=== PATIENT | male | born 1965 | race Caucasian/White ===

== ENCOUNTER 2020-12-27 18:11 | Emergency (ER) | payer OTHER, SELFPAY ==
[2020-12-27 18:15] VITALS: BP 159/90; PULSE 71; RESP 18; TEMP 37.1; O2SAT 97; BMI 32.6
--- NOTE | 2020-12-27 18:20 | ED_ITS ---
HPI - General Adult General: Chief complaint: General Medical Stated complaint: covid exposure Time Seen by Provider: 12/27/20 18:18 History of Present Illness: HPI narrative: Patient reports positive Covid exposure from his daughter who tested positive here in the ER today. Patient said he had some nausea and not feeling good last week diarrhea but he is feeling fine now. Has a history of hypertension cardiovascular disease. Would like to know if he is Covid positive. MD complaint: Covid exposure Onset (ago): day(s) Associated symptoms: Reports no associated symptoms; Deny chest pain, dyspnea, headache(s), nausea, rash or vomiting Review of Systems Const: Denies: fever(s), chills or body aches Eyes: Denies: change in vision or blurry vision ENMT: Denies: throat pain or nasal congestion Card: Denies: chest pain or dyspnea on exertion Resp: Denies: dyspnea, productive cough or non-productive cough GI: Denies: abdominal pain, nausea or vomiting : Denies: difficulty urinating Musc: Denies: extremity pain Skin/Breast: Denies: rash Neuro: Denies: headache(s) Psych: Denies: anxiety or depression Dieter/Lymph: Denies: easy bruising PFSH ED PFSH: Medical History CAD (coronary artery disease) Hyperlipidemia Hypertension Surgical History Hx of CABG Family History Other CAD (coronary artery disease) Diabetes Hypertension Social History Smoking and tobacco status: never smoked Alcohol intake: current Alcohol intake frequency: few times a month Physical Exam Const: COMMON NORMALS: no acute distress Resp: COMMON NORMALS: normal respiratory effort Psych: COMMON NORMALS: mental status grossly normal Course Vital Signs: Vital signs: Vital Signs Temperature 98.7 F 12/27/20 18:15 Pulse Rate 71 12/27/20 18:15 Respiratory Rate 18 12/27/20 18:15 Blood Pressure 159/90 12/27/20 18:15 Pulse Oximetry 97 12/27/20 18:15 Discharge Plan Discharge Prescriptions: No Action aspirin [Adult Low Dose Aspirin] 81 mg tablet,delayed release (DR/EC) 81 mg PO DAILY RF: 0 carvedilol 3.125 mg tablet 3.125 mg PO BID RF: 0 simvastatin 20 mg tablet 20 mg PO DAILY RF: 0 hydrocodone-acetaminophen 5-325 mg tablet 1 tab PO BID PRNRF: 0 nitroglycerin [Nitrostat] 0.4 mg tablet, sublingual 0.4 mg SUBLINGUAL Q5M PRN (Reason: chest pain) Qty: 50 RF: 2 Coding Level of Care Code ED Credit Charge Authorizer for Uzma Lee
[2020-12-27 18:49] LABS: SARS Covid-2 Antigen Negative (Negative)
== END 2020-12-27 19:05 | disposition home or self-care (01) ==
PROVIDERS: Emergency Provider Nurse Practitioner Family
DX: Z20.822 Contact with and (suspected) exposure to COVID-19 (principal); I25.10 Atherosclerotic heart disease of native coronary artery without angina pectoris; E78.5 Hyperlipidemia, unspecified; I10 Essential (primary) hypertension; Z95.1 Presence of aortocoronary bypass graft; Z79.82 Long term (current) use of aspirin
CPT/HCPCS: 87426; 99282

== ENCOUNTER 2022-01-03 08:11 | Outpatient (CLI) | payer OTHER, SELFPAY ==
[2022-01-03 09:13] VITALS: BMI 33.4
--- NOTE | 2022-01-03 09:15 | NMCV_ITS ---
NM shanthi perf SPECT r/s* [id number] Tamia Callejas Age: 56 Gender: M : 1965 Exam Date: 01/03/2022 09:37 Ordering Phys: Berto Ayala MD Technologist: VIOLA Sousa Exam Location: [facility] Indications: DYSPNEA ON EXERTION STRESS TEST Please see separate stress test report in [facility] for full findings IMAGE PROTOCOL Rest/Stress 1 Lexiscan Day Radiopharmaceutical Dose (mCi) Administration Site Administered by Rest: Tc-99m 10.8 IV VIOLA Barrios Sestamibi Stress:Tc-99m 33.0 IV VIOLA Barrios Sestamibi Rest: 03-Jan-2022 60 Discovery 630 Stress: 03-Jan-2022 30 Discovery 630 0.4mg Lexiscan. Images obtained in supine and prone position. SPECT RESULTS Technical Quality: Excellent Raw Data Analysis: Normal Image Corrections: No attenuation or motion correction applied Summed Stress Score: 16 Summed Rest Score: 11 Summed Difference Score: 6 PERFUSION FINDINGS Medium to large partially reversible perfusion abnormality of moderate severity in basal to apical inferior, basal to mid inferolateral, mid anterolateral, mid inferoseptal, apical lateral and apical lora. FUNCTIONAL RESULTS (calculated via Gated SPECT) Stress Image LV EF (%): 43 Stress EDV (mL):138 TID: 1.07 Stress ESV (mL):78 FUNCTIONAL FINDINGS: The left ventricle is normal in size. Transient Ischemia Dilatation of 1.1. The left ventricular ejection fraction is mildly reduced with a value of 43%. There is global hypokinesis. IMPRESSIONS 1. Medium to large partially reversible perfusion abnormality of basal to apical inferior, basal to mid inferolateral, mid anterolateral, mid inferoseptal, apical lateral and apical lora. 2. This may be suggestive of myocardial infarction with mild [place]-infarct ischemia in right coronary artery and circumflex artery territory. (SDS=6) 3. The left ventricular ejection fraction is mildly reduced with a value of 43%. 4. There is global hypokinesis. 5. EKG portion of the study will be reported separately. Odalis Mcfarland MD (Electronically Signed) Final Date: 06 Jan 2022 13:25 S
--- NOTE | 2022-01-03 09:15 | ECG_ITS ---
[facility] Test Date: 2022-01-03 Pat Name: Tamia Callejas Department: Room: Gender: Male [employer] Registrar: Roro Mccarty : 1965 Requested By: Berto Sigala Order Number: [id number] Mandeep MD: Odalis Mcfarland M.D. Interpretive Statements NAME OF STUDY: LEXISCAN SESTAMIBI STRESS TEST INDICATION: Exertional dyspnea PROCEDURE: At the baseline, the blood pressure was 125/95 mmHg with a heart rate of 58 bpm. The electrocardiogram showed normal sinus rhythm, normal axis with nonspecific ST depression and T wave inversion in inferolateral leads. The Lexiscan was infused over a period of 20 seconds. A total of 0.4 milligrams of Lexiscan was infused. The stress phase was continued for a total of 5 minutes. Heart rate at the end of the stress phase was 110/79 mmHg with a blood pressure of 71 bpm. The EKG at the peak infusion revealed sinus rhythm with no significant ST-T wave changes. The study was terminated protocol completion. Sestamibi was injected 20 seconds after the Lexiscan infusion. Blood pressure at the end of the recovery phase was 134/85 mmHg with a heart rate of 68 beats per minute. CONCLUSION: 1. Equivocal EKG response with the LexiScan infusion due to baseline ST-T wave changes. 2. No LexiScan induced chest pain or cardiac arrhythmia. 3. Normal blood pressure and heart rate response. 4. Sestamibi/sestamibi perfusion scan pending; see separate report. Electronically Signed On 01-03-2022 18:18:14 CDT by Odalis Mcfarland M.D. [id number]
[2022-01-03] MEDS: regadenoson 0.4 Mg/5 ml Syringe IVP (10:26)
[2022-01-03 10:30] VITALS: BP 134/85; PULSE 66
== END 2022-01-03 08:12 | disposition home or self-care (01) ==
LOC: RAD 08:32 → CDL 09:10
PROVIDERS: PCP Family Medicine; Visit Provider Family Medicine
DX: R06.09 Other forms of dyspnea (principal); R94.39 Abnormal result of other cardiovascular function study
CPT/HCPCS: 78452; 93017; A9500; J2785

== ENCOUNTER → 2022-11-18 07:39 | Outpatient (BNVA) | payer OTHER, SELFPAY | PROVIDERS: PCP Family Medicine; Visit Provider Family Medicine | DX: E78.49 Other hyperlipidemia (principal); I10 Essential (primary) hypertension; I25.810 Atherosclerosis of coronary artery bypass graft(s) without angina pectoris; I25.10 Atherosclerotic heart disease of native coronary artery without angina pectoris; E78.5 Hyperlipidemia, unspecified | CPT/HCPCS: 80053; 80061; 85025 ==

== ENCOUNTER → 2022-11-25 12:19 | Outpatient (BNVA) | payer OTHER, SELFPAY | PROVIDERS: PCP Family Medicine; Visit Provider Family Medicine | DX: R73.9 Hyperglycemia, unspecified (principal); E78.5 Hyperlipidemia, unspecified | CPT/HCPCS: 83036 ==

== ENCOUNTER → 2023-07-20 14:23 | Outpatient (BNVA) | payer OTHER, SELFPAY | PROVIDERS: PCP Family Medicine; Visit Provider Family Medicine | DX: I10 Essential (primary) hypertension (principal); E78.5 Hyperlipidemia, unspecified; I25.10 Atherosclerotic heart disease of native coronary artery without angina pectoris; G47.00 Insomnia, unspecified; E10.9 Type 1 diabetes mellitus without complications; E03.8 Other specified hypothyroidism | CPT/HCPCS: 80053; 80061; 83036; 85025 ==

== ENCOUNTER 2024-01-18 07:44 | Outpatient (CLI) | payer OTHER, SELFPAY ==
--- NOTE | 2024-01-18 07:47 | XR_ITS ---
WS: [id number] Exam: XR ribs RT mn 3V w CXR1V [id number] Date/Time of Exam: 01/18/2024 7:48 AM Reason For Exam: right rib, posterior lower rib pain Compared to chest radiograph 05/14/2018. No acute RIGHT rib fracture. The RIGHT lung is fully expanded and clear. Normal cardiomediastinal sayra houette. LEFT lung is also clear. Signs of median sternotomy. No pleural effusions. XR/XR ribs RT mn 3V w CXR1V [id number] IMPRESSION: 1. Negative RIGHT rib study. 2. No acute cardiopulmonary finding.
== END 2024-01-18 07:45 | disposition home or self-care (01) ==
LOC: RAD 07:46
PROVIDERS: PCP Family Medicine; Visit Provider Family Medicine
DX: R07.81 Pleurodynia (principal)
CPT/HCPCS: 71101; 80048; 83036

== ENCOUNTER 2025-07-20 10:40 | Emergency (ER) | payer OTHER, SELFPAY ==
--- NOTE | 2025-07-20 10:41 | XRR_ITS ---
PROCEDURE INFORMATION: Exam: XR Chest Exam date and time: 07/20/2025 10:51 AM Age: 59 years old Clinical indication: Pain; Chest pressure; Prior surgery; Surgery date: 6+ months; Surgery type: Quad bypass stents; Additional info: Cp TECHNIQUE: Imaging protocol: Radiologic exam of the chest. Views: 1 view. COMPARISON: CR XR ribs RT mn 3V w CXR1V [id number] 01/18/2024 7:50 AM FINDINGS: Lungs: Unremarkable. No consolidation. Pleural spaces: Unremarkable. No pleural effusion. No pneumothorax. Heart/Mediastinum: Heart size is normal. There is calcified plaque involving the aorta. Sternal wires are present from prior cardiac surgery. Bones/joints: Unremarkable. XR/XR chest 1V portable [id number] IMPRESSION: 1. No acute findings.
--- NOTE | 2025-07-20 10:41 | ECG_ITS ---
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 Measurements Intervals [place] Rate: 70 P: -12 FL: 183 QRS: 32 QRSD: 94 T: 53 QT: 403 QTc: 437 Interpretive Statements SINUS RHYTHM NONSPECIFIC T-WAVE ABNORMALITY Compared to ECG 05/14/2018 17:27:28 No significant changes Electronically Signed On 07-20-2025 11:32:57 BRAND REPRESENTATIVE by Brannon Li M.D. [id number]
--- OUTSIDE RECORDS SUMMARY | 2025-07-20 10:43 | XMS_ITS | Encounter Summary ---
Author Organization [facility] Address [address] [place] [address] Care Team Providers Care Flash Oven Operator Name Role Phone Unavailable Primary Care Provider Unavailabl e Encounter Details Date Type Department Care Team (Latest Contact Info) Description 09/20/[address] [facility] Orthopedics- 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
--- OUTSIDE RECORDS SUMMARY | 2025-07-20 10:43 | XMS_ITS | Encounter Summary ---
Author Organization [facility] Address [address] [place] [address] Care Team Providers Care After School Coordinator Name Role Phone Unavailable Primary Care Provider Unavailabl e Encounter Details Date Type Department Care Team (Latest Contact Info) Description 07/29/2004 Outpatient Historical [facility] Orthopedics- 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
--- OUTSIDE RECORDS SUMMARY | 2025-07-20 10:43 | XMS_ITS | Encounter Summary ---
Author Organization [facility] Address [address] [place] [address] Care Team Providers Care Way Inspector Name Role Phone Unavailable Primary Care Provider Unavailabl e Encounter Details Date Type Department Care Team (Latest Contact Info) Description 07/29/2004 Outpatient Historical [facility] Hand Therapy [address] [place] [phone] Ulisses Minor MD [address] [place] [phone] DISLOCAT ELBOW NOS-CLOSE (Primary Dx) Social History Tobacco Use Types Packs/Day Years Used Date Smoking Tobacco: Never Assessed Sex and Gender Information Value Date Recorded Sex Assigned at Not on file 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
--- OUTSIDE RECORDS SUMMARY | 2025-07-20 10:43 | XMS_ITS | Encounter Summary ---
Author Organization [facility] Address [address] [place] [address] Care Team Providers Care Medical Billing Instructor Name Role Phone Unavailable Primary Care Provider Unavailabl e Encounter Details Date Type Department Care Team (Latest Contact Info) Description 11/01/2004 Outpatient Historical [facility] Orthopedics- 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
--- OUTSIDE RECORDS SUMMARY | 2025-07-20 10:43 | XMS_ITS | Clinical Summary ---
Author Organization [facility] Address [address] 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
--- OUTSIDE RECORDS SUMMARY | 2025-07-20 10:43 | XMS_ITS | Encounter Summary ---
Author Organization [facility] Address [address] [place] [address] Care Team Providers Care Tax Director Name Role Phone Unavailable Primary Care Provider Unavailabl e Encounter Details Date Type Department Care Team (Latest Contact Info) Description 12/08/2004 Outpatient Historical [facility] Orthopedics- 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
--- OUTSIDE RECORDS SUMMARY | 2025-07-20 10:43 | XMS_ITS | Encounter Summary ---
Author Organization [facility] Address [address] [place] [address] Care Team Providers Care Gas Turbine Mechanic Name Role Phone Unavailable Primary Care Provider Unavailabl e Encounter Details Date Type Department Care Team (Latest Contact Info) Description 02/14/2005 Outpatient Historical [facility] Orthopedics- 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
--- OUTSIDE RECORDS SUMMARY | 2025-07-20 10:43 | XMS_ITS | Encounter Summary ---
Author Organization [facility] Address [address] [place] [address] Care Team Providers Care Preconstruction Manager Name Role Phone Unavailable Primary Care Provider Unavailabl e Encounter Details Date Type Department Care Team (Latest Contact Info) Description 02/02/2005 Outpatient Historical [facility] [address] [place] [address] Ulisses Minor MD [address] [place] [phone] JOINT CONTRACTURE-UP/ARM (Primary Dx) Social History Tobacco Use Types Packs/Day Years Used Date Smoking Tobacco: Never Assessed Sex and Gender Information Value Date Recorded Sex Assigned at Not on file 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
--- OUTSIDE RECORDS SUMMARY | 2025-07-20 10:43 | XMS_ITS | Encounter Summary ---
Author Organization [facility] Address [address] [place] [address] Care Team Providers Care Director Of Primary Name Role Phone Unavailable Primary Care Provider Unavailabl e Encounter Details Date Type Department Care Team (Latest Contact Info) Description 03/28/2005 Outpatient Historical [facility] Orthopedics- 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
--- OUTSIDE RECORDS SUMMARY | 2025-07-20 10:43 | XMS_ITS | Encounter Summary ---
Author Organization [facility] Address [address] [place] [address] Care Team Providers Care Spoilage Worker Name Role Phone Unavailable Primary Care Provider Unavailabl e Encounter Details Date Type Department Care Team (Latest Contact Info) Description 09/29/2004 Outpatient Historical [facility] Hand Therapy [address] [place] [phone] Ulisses Minor MD [address] [place] [phone] DISLOCAT ELBOW NOS-CLOSE (Primary Dx) Social History Tobacco Use Types Packs/Day Years Used Date Smoking Tobacco: Never Assessed Sex and Gender Information Value Date Recorded Sex Assigned at Not on file 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
--- OUTSIDE RECORDS SUMMARY | 2025-07-20 10:43 | XMS_ITS | Encounter Summary ---
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
--- OUTSIDE RECORDS SUMMARY | 2025-07-20 10:43 | XMS_ITS | Encounter Summary ---
Author Organization [facility] Address [address] [place] [address] Care Team Providers Care Microarray Operations Vice President Name Role Phone Unavailable Primary Care Provider Unavailabl e Encounter Details Date Type Department Care Team (Latest Contact Info) Description 08/29/2004 Outpatient Historical [facility] Hand Therapy [address] [place] [phone] Ulisses Minor MD [address] [place] [phone] DISLOCAT ELBOW NOS-CLOSE (Primary Dx) Social History Tobacco Use Types Packs/Day Years Used Date Smoking Tobacco: Never Assessed Sex and Gender Information Value Date Recorded Sex Assigned at Not on file 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
--- OUTSIDE RECORDS SUMMARY | 2025-07-20 10:43 | XMS_ITS | Encounter Summary ---
Author Organization [facility] Address [address] [place] [address] Care Team Providers Care Composite Boat Builder Name Role Phone Unavailable Primary Care Provider Unavailabl e Encounter Details Date Type Department Care Team (Latest Contact Info) Description 08/16/2004 Outpatient Historical [facility] Orthopedics- 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
[2025-07-20 10:45] VITALS: BP 148/88; PULSE 71; RESP 19; TEMP 36.5; O2SAT 96; BMI 21.2
--- NOTE | 2025-07-20 10:48 | W.ED.CHESTPA ---
HPI - Chest Pain General: Chief Complaint: Chest Pain Stated Complaint: cp, L arm tingling Time Seen by Provider: 07/20/25 10:46 Source: patient Mode of arrival: ambulatory Limitations: no limitations History of Present Illness: 59-year-old male states he has been having chest pain has been off and on for 2 weeks. States been a sharp pain in his left chest he denies any radiation denies any shortness of breath nausea. Does have extensive heart history. Patient states he is currently pain-free he was having pain earlier this morning Related Data Home Medications ?Medication ?Instructions ?Recorded ?Confirmed aspirin 81 mg tablet,delayed 81 mg PO DAILY 01/10/20 01/18/24 release (Adult Low Dose Aspirin) amlodipine 2.5 mg tablet 2.5 mg PO DAILY 11/15/22 01/18/24 clopidogrel 75 mg tablet 75 mg PO DAILY 11/15/22 01/18/24 rosuvastatin 20 mg tablet 20 mg PO DAILY 11/15/22 01/18/24 Previous Rx's ?Medication ?Instructions ?Recorded carvedilol 3.125 mg tablet 3.125 mg PO BID #60 tabs 06/02/22 nitroglycerin 0.4 mg sublingual 0.4 mg sublingual Q5M PRN chest 11/15/22 tablet (Nitrostat) pain #20 tabs tadalafil 10 mg tablet (Cialis) 10 mg PO DAILY PRN sexual activity 11/15/22 #20 tabs prednisone 20 mg tablet 20 mg PO DAILY #5 tabs 01/18/24 Allergies Allergy/AdvReac Type Severity Reaction Status Date / Time No Known Allergies Allergy Verified 07/20/25 11:01 Review of Systems Card: Reports: chest pain PFS ED PFSH: Medical History Diabetes mellitus type 2, controlled Insomnia CAD (coronary artery disease) Hyperlipidemia Hypertension Surgical History Hx of CABG Family History Other CAD (coronary artery disease) Diabetes Hypertension Social History Smoking and tobacco/nicotine status: never used tobacco/nicotine Alcohol intake: current Alcohol intake frequency: few times a month Substance/Drug Use: never Physical Exam Const: COMMON NORMALS: patient oriented x3 HENMT: COMMON NORMALS: normocephalic and atraumatic HEAD & SCALP: normocephalic and atraumatic Neck/C-Spine: COMMON NORMALS: full ROM and supple Chest: COMMONS NORMALS: normal inspection of the chest and normal palpation of entire chest wall Resp: COMMON NORMALS: normal respiratory effort, No retractions, No use of accessory muscles and clear to auscultation bilaterally AUSCULTATION: clear to auscultation bilaterally Cardio: COMMON NORMALS: regular rate, regular rhythm and No murmurs present (Cardio) RATE: regular rate RHYTHM: regular rhythm Extremity: COMMON NORMALS: normal to inspection and full ROM Neuro: COMMON NORMALS: patient oriented x3, moves all extremities and no focal motor deficits Psych: COMMON NORMALS: mental status grossly normal, Normal thought process present and cooperative THOUGHT PROCESS: Normal thought process present Skin: COMMON NORMALS: no rashes or lesions noted and no wounds GENERAL SKIN EXAM: no rashes or lesions noted Course Vital Signs: Vital signs: Vital Signs Temperature 97.7 F 07/20/25 10:45 Pulse Rate 70 07/20/25 11:18 Respiratory Rate 19 H 07/20/25 10:45 Blood Pressure 122/72 07/20/25 11:18 Pulse Oximetry 98 07/20/25 11:18 Oxygen Delivery Me thod Room Air 07/20/25 11:18 MDM - Chest Pain Medical Decision Making EKG interpretation time 1050 normal sinus rhythm no ST elevation QRS 94 QTc 424 Medical Records I reviewed the patient's medical records. Lab Data 07/20/25 10:57 07/20/25 10:57 Radiology Impressions Chest X-Ray 07/20/25 10:41 IMPRESSION: 1. No acute findings. Laboratory Results WBC 7.25 10^3/uL (3.29-11.43) 07/20/25 10:57 RBC 4.55 10^6/uL (3.85-5.65) 07/20/25 10:57 Hgb 15.00 g/dL (11.27-16.99) 07/20/25 10:57 Hct 43.7 % (37-53) 07/20/25 10:57 MCV 96.0 fl (82-101) 07/20/25 10:57 MCH 33.0 pg (27-33) 07/20/25 10:57 MCHC 34.3 g/dL (30-55) 07/20/25 10:57 RDW 12.4 % (12.1-15.1) 07/20/25 10:57 Plt Count 179 10^3/cmm (157-399) 07/20/25 10:57 MPV 11.4 fL (7.4-10.4) H 07/20/25 10:57 Neut % (Auto) 66.3 % 07/20/25 10:57 Lymph % (Auto) 21.4 % 07/20/25 10:57 [place] % (Auto) 9.0 % 07/20/25 10:57 Eos % (Auto) 2.2 % 07/20/25 10:57 Baso % (Auto) 0.4 % 07/20/25 10:57 Neut # (Auto) 4.81 10^3/uL (1.8-7.7) 07/20/25 10:57 Lymph # (Auto) 1.6 10^3/uL (0.8-4.8) 07/20/25 10:57 [place] # (Auto) 0.7 10^3/uL (0.2-0.9) 07/20/25 10:57 Eos # (Auto) 0.2 10^3/uL (0.0-0.8) 07/20/25 10:57 Baso # (Auto) 0.0 10^3/uL (0.0-0.1) 07/20/25 10:57 Nucleated RBC % (auto) 0 % 07/20/25 10:57 Nucleated RBCs # 0.0 /100WBC 07/20/25 10:57 Sodium 138 mmol/L (136-145) 07/20/25 10:57 Potassium 4.4 mmol/L (3.5-5.1) 07/20/25 10:57 Chloride 103 mmol/L (98-107) 07/20/25 10:57 Carbon Dioxide 22 mmol/L (22-29) 07/20/25 10:57 Anion Gap 17.4 (5-19) 07/20/25 10:57 BUN 9 mg/dL (8-23) 07/20/25 10:57 Creatinine 0.6 mg/dL (0.7-1.2) L 07/20/25 10:57 GFR Calculation 137.4 mL/min (90-130) H 07/20/25 10:57 Glucose 387 mg/dL (65-115) H 07/20/25 10:57 Calculated Osmolality 301 mOsm/kg (285-295) H 07/20/25 10:57 Calcium 9.3 mg/dL (8.5-10.5) 07/20/25 10:57 Total Bilirubin 0.4 mg/dL (0.15-1.2) 07/20/25 10:57 AST 40 U/L (0-40) 07/20/25 10:57 ALT 46 U/L (0-41) H 07/20/25 10:57 Alkaline Phosphatase 85 U/L (40-130) 07/20/25 10:57 Troponin T Baseline 10 ng/L (0-15) 07/20/25 10:57 Total Protein 6.8 g/dL (6.6-8.7) 07/20/25 10:57 Albumin 4.6 g/dL (3.5-5.2) 07/20/25 10:57 Globulin 2.2 g/dL (1.3-4.6) 07/20/25 10:57 Lipase 94 U/L (13-60) H 07/20/25 10:57 All radiology interpretation(s) finalized by discharge Discharge Plan Discharge Condition: Stable Prescriptions: No Action aspirin [Adult Low Dose Aspirin] 81 mg tablet,delayed release (DR/EC) 81 mg PO DAILY rosuvastatin 20 mg tablet 20 mg PO DAILY clopidogrel 75 mg tablet 75 mg PO DAILY amlodipine 2.5 mg tablet 2.5 mg PO DAILY nitroglycerin [Nitrostat] 0.4 mg tablet, sublingual 0.4 mg SUBLINGUAL Q5M PRN (Reason: chest pain) Qty: 20 3RF Rx Instructions: do not exceed 3 doses per episode tadalafil [Cialis] 10 mg tablet 10 mg PO DAILY PRN (Reason: sexual activity) Qty: 20 3RF Rx Instructions: do not take with nitroglycerin prednisone 20 mg tablet 20 mg PO DAILY Qty: 5 0RF Rx Instructions: take with food. carvedilol 3.125 mg tablet 3.125 mg PO BID Qty: 60 11RF Rx Instructions: must administer with a meal/food Referrals: Berto Ayala MD [Primary Care Provider, Family Practice] Print Language: [place]ian Coding Level of Care Code ED [employer] for Chg Fwd Heart Score HEART Score Components History: Slightly Suspicous EKG: Normal Age: 45-64 yrs Risk Factors: >/=3 Risk Factors Troponin: Baseline Trop <16 ng/L HEART Score RESULT HEART Score: 3
[2025-07-20 11:03] LABS: Hematocrit 43.7 % (37-53); Hemoglobin 15.00 g/dL (11.27-16.99); Mean Corpuscular HGB Conc 34.3 g/dL (30-55); Mean Corpuscular Hemoglobin 33.0 pg (27-33); Mean Corpuscular Volume 96.0 fl (82-101); Nucleated Red Blood Cells % 0 %; Platelet Count 179 10^3/cmm (157-399); Red Blood Count 4.55 10^6/uL (3.85-5.65); White Blood Count 7.25 10^3/uL (3.29-11.43)
[2025-07-20 11:18] VITALS: BP 122/72; PULSE 70; O2SAT 98
[2025-07-20 11:19] LABS: Alanine Aminotransferase 46 U/L (0-41); Albumin Level 4.6 g/dL (3.5-5.2); Alkaline Phosphatase 85 U/L (40-130); Blood Urea Nitrogen 9 mg/dL (8-23); Calcium 9.3 mg/dL (8.5-10.5); Carbon Dioxide 22 mmol/L (22-29); Chloride 103 mmol/L (98-107); Globulin 2.2 g/dL (1.3-4.6); Glucose 387 mg/dL (65-115); Lipase 94 U/L (13-60); Osmolality Calculated 301 mOsm/kg (285-295); Sodium 138 mmol/L (136-145); Total Protein 6.8 g/dL (6.6-8.7)
[2025-07-20 11:20] LABS: Anion Gap 17.4 (5-19); Aspartate Amino Transferase 40 U/L (0-40); Potassium 4.4 mmol/L (3.5-5.1)
[2025-07-20 11:21] LABS: Troponin(5th) Baseline 10 ng/L (0-15)
[2025-07-20 11:31] VITALS: BP 123/73; PULSE 61; RESP 18; O2SAT 96
[2025-07-20 11:42] VITALS: BP 123/73; PULSE 62; O2SAT 98
== END 2025-07-20 11:43 | disposition home or self-care (01) ==
PROVIDERS: Emergency Provider Emergency Medicine; PCP Family Medicine
DX: R07.9 Chest pain, unspecified (principal); E11.9 Type 2 diabetes mellitus without complications; E78.5 Hyperlipidemia, unspecified; I25.10 Atherosclerotic heart disease of native coronary artery without angina pectoris; I10 Essential (primary) hypertension; Z95.1 Presence of aortocoronary bypass graft; Z79.82 Long term (current) use of aspirin; Z79.02 Long term (current) use of antithrombotics/antiplatelets
CPT/HCPCS: 36415; 71045; 80053; 83690; 84484; 85025; 93005; 99285; J9999